=== PATIENT | male | born 1960 | race Caucasian/White ===

== ENCOUNTER 2025-08-04 09:34 | Inpatient (IN) | payer OTHER, BC ==
[2025-08-04] MEDS ORDERED: ONDANSETRON 4 MG/2 ML VIAL ONE ×2 (09:57→12:50)
[2025-08-04] MEDS ORDERED: FENTANYL CITR 100 MCG/2 ML ONE ×3 (09:58→14:45)
[2025-08-04 10:02] LABS: Absolute Lymphocytes (CBC) 0.5 K/uL (0.7-4.9); Hematocrit 45.9 % (39.6-49.0); Hemoglobin 15.9 g/dL (13.6-17.9); MCH 33.4 pg (27.0-35.0); MCHC 34.7 g/dL (32.0-36.0); MCV 96.2 fL (80-100); MPV 8.7 fL (7.6-11.3); Nucleated RBC Absolute Count 0.0 (0-0); Nucleated Red Blood Cells % 0.0 % (0-0); RBC Red Blood Cell Count 4.77 M/uL (4.33-5.43); White Blood Count 9.60 thou/uL (4.3-10.9)
[2025-08-04 10:21] LABS: ALT/SGPT 16 U/L (16-61); Albumin 3.6 g/dL (3.4-5.0); Albumin/Globulin Ratio 0.8 (1.1-1.8); Alkaline Phosphatase 31 U/L (45-117); Anion Gap 14.3 mEq/L (5.0-15.0); BUN Blood Urea Nitrogen 30 mg/dL (7-18); Globulin 4.3 g/dL (2.3-3.5); Glucose Level 141 mg/dL (74-106); Lipase 23 U/L (13-75); Potassium 4.3 mEq/L (3.5-5.1)
[2025-08-04] MEDS ORDERED: NA CHLORIDE 0.9% 1,000 ML ONE ×2 (10:21→12:18)
[2025-08-04 10:24] LABS: AST/SGOT < 10 U/L (15-37)
--- NOTE | 2025-08-04 10:49 | RAD REPORT ---
EXAMINATION: CT ABDOMEN AND PELVIS WITHOUT CONTRAST CLINICAL INDICATION: ABD PAIN TECHNIQUE: CT abdomen and pelvis was performed, without IV contrast, as per department protocol. Axia l, sagittal and coronal reconstructions were obtained. One or more of the following dose reduction techniques were used: Automated exposure control, adjustment of the mA and kV according to the patien t size, and iterative reconstruction. Unless otherwise specified, incidental findings do not require dedicated imaging follow-up. COMPARISON: No prior exam. FINDINGS: The lack of intravenous contrast limits the sensitivity of this exam for evaluation of solid visceral organs, vascular structures, and retroperitoneum. LOWER CHEST: Mild linear atelectasis in both lung bases. LIVER:Normal in size and contour. No focal lesion. Grossly unremarkable gallbladder. SPLEEN: Normal size. No focal lesion. PANCREAS: No mass, ductal dilation, or emmy-pancreatic fluid. ADRENALS: Normal; no mass. KIDNEYS AND URETERS: Small calyceal calculi present lateral kidneys. 29 mm posteriorly located right renal cyst. URINARY BLADDER: Normal contour. GASTROINTESTINAL TRACT: No evidence of bowel obstruction, significant free fluid, free air or abscess . A few mildly prominent small bowel loops in the central abdomen likely ileus. APPENDIX: Enlarged and inflamed appendix measuring up to 15 mm containing an appendicolith. LYMPH NODES: No lymphadenopathy. MUSCULOSKELETAL: No acute or suspicious osseous abnormality. ADDITIONAL FINDINGS: Aortoiliac atherosclerosis. IMPRESSION: Acute appendicitis.
[2025-08-04] MEDS ORDERED: NA CHLORIDE 0.9% 100 ML ONE (11:04)
[2025-08-04] MEDS ORDERED: PIPERACIL/TAZO 3.375 GM VIAL IV ONE (11:04)
--- NOTE | 2025-08-04 11:14 | ER ---
Nurse's Notes [facility] Name: Vazquez Melgar Age: 64 yrs Sex: Male : 1960 Arrival Date: 08/04/2025 Time: 09:34 Bed 7 Private MD: Diagnosis: Acute appendicitis with localized peritonitis;ADRIAN;elecated lactate Presentation: 08/04 09:43 Chief complaint: Patient states: abd pain since Friday. Coronavirus screen: At this iw time, the client does not indicate any symptoms associated with coronavirus-19. Ebola Screen: No symptoms or risks identified at this time. Risk Assessment: Do you want to hurt yourself or someone else? Patient reports no desire to harm self or others. Onset of symptoms was August 01, 2025. 09:43 Method Of Arrival: Wheelchair iw 09:43 Acuity: MELISSA 3 iw 12:28 Initial Sepsis Screen: Does the patient meet any 2 criteria? No. Patient's initial 5 sepsis screen is negative. Does the patient have a suspected source of infection? No. Patient's initial sepsis screen is negative. Historical: - Allergies: 09:43 No Known Allergies; iw - PMHx: 09:43 Hypercholesterolemia; Hypertensive disorder; iw - PSHx: 09:43 hernia; iw - Immunization history:: Adult Immunizations not up to date. - Infectious Disease History:: Denies. - Social history:: Smoking status: Patient denies any tobacco usage or history of. Screenin:50 [facility] ED Fall Risk Assessment (Adult) History of falling in the last 3 months, 5 including since admission No falls in past 3 months (0 pts) Confusion or Disorientation No (0 pts) Intoxicated or Sedated No (0 pts) Impaired Gait No (0 pts) Mobility Assist Device Used No (0 pt) Altered Elimination No (0 pt) Score/Fall Risk Level 0 - 2 = Low Risk Oriented to surroundings, Maintained a safe environment, Educated pt \T\ family on fall prevention, incl call for assistance when getting out of bed, Assessed \T\ reinforced patient's understanding of fall precautions, Provided non-skid footwear, Hourly rounding (assess needs \T\ fall precautionary measures) done, Used ambulatory aids as needed (educated on \T\ assisted with). Abuse screen: Denies threats or abuse. Denies injuries from another. Nutritional screening: No deficits noted. Tuberculosis screening: No symptoms or risk factors identified. Assessment: 09:55 General: Appears uncomfortable, Behavior is cooperative. Pain: Complains of pain in jp5 abdomen Pain currently is 10 out of 10 on a pain scale. Quality of pain is described as. GI: Bowel sounds present X 4 quads. Abd is soft X 4 quads Abdomen is tender to palpation. 11:00 Reassessment: Patient appears in no apparent distress at this time. Patient and/or jp5 family updated on plan of care and expected duration. Pain level reassessed. Patient is alert, oriented x 3, equal unlabored respirations, skin warm/dry/pink. Patient states symptoms have improved. Vital Signs: 09:45 BP 129 / 84; Pulse 101; Resp 19; Pulse Ox 97% on R/A; Weight 72.57 kg; Height 5 ft. 6 iw in. ; Pain 10/10; 10:00 BP 112 / 65; Pulse 100; Resp 18; Pulse Ox 96% on R/A; jp5 10:30 Pain 5/10; jp5 11:00 BP 102 / 58; Pulse 91; Resp 18; Pulse Ox 96% on R/A; jp5 12:00 BP 110 / 60; Pulse 90; Resp 18; Temp 98; Pulse Ox 96% on R/A; Pain 0/10; jp5 09:45 Body Mass Index 25.82 (72.57 kg, 167.64 cm) iw 09:45 Pain Scale: Adult iw 10:30 Pain Scale: Adult jp5 12:00 Pain Scale: Adult 5 ED Course: 09:37 Patient arrived in ED. al6 09:37 Talon Luther DO is Attending Physician. ms3 09:39 Lyle Kwon, ИВАН is PHCP. cr8 09:43 Triage completed. iw 09:44 Kamini Smith, RN is Primary Nurse. jp5 09:46 Arm band placed on. iw 09:50 Patient has correct armband on for positive identification. Bed in low position. Call cyrus light in reach. Side rails up X 1. Provided Education on: call light use. Pulse ox on. NIBP on. Warm blanket given. 09:50 No provider procedures requiring assistance completed. Initial lab(s) drawn, by cyrus wilson sent to lab. Inserted saline lock: 20 gauge in right antecubital area, using aseptic technique. Blood collected. Flushed with 10 mL NS. 09:55 CBC with Diff Sent. jp5 09:55 CMP Sent. jp5 09:55 Lipase Sent. jp5 09:55 Lactate w/ 2H reflex if indic. Sent. jp5 10:39 CT Abd/Pelvis - Without Contrast In Process Unspecified. EDMS 11:12 Lionel Ornelas MD is Hospitalizing Provider. cr8 12:23 Ghost Lactate-NO COLLECT Timer Sent. jp5 12:28 Patient admitted, IV remains in place. jp5 Administered Medications: 10:02 Drug: fentaNYL (PF) IVP 50 mcg IVP once Route: IVP; Site: right antecubital; jp5 10:30 Follow up: Pain 5/10 Adult; Response: No adverse reaction; Pain is decreased jp5 10:02 Drug: Ondansetron IVP 4 mg IVP once; over 2 minutes Route: IVP; Site: right antecubital;jp5 10:30 Follow up: Response: No adverse reaction jp5 10:38 Drug: NS 0.9% IV 1000 ml IV at 1000 ml once; to be given as a bolus over 60 minutes aa5 Route: IV; Rate: 1000 ml; Site: right antecubital; 11:38 Follow up: Response: No adverse reaction; IV Status: Completed infusion; IV Intake: jp5 1000ml 11:09 Drug: Piperacillin-Tazobactam IVPB 3.375 grams IVPB once over 60 mins; (mix in NS 100 jp5 mL) Route: IVPB; Infused Over: 60 mins; Site: right antecubital; 12:09 Follow up: Response: No adverse reaction; IV Status: Completed infusion; IV Intake: jp5 100ml 12:23 Drug: NS 0.9% IV 1000 ml IV at 1000 ml once; to be given as a bolus over 60 minutes jp5 Route: IV; Rate: 1000 ml; Site: right antecubital; Medication: 09:50 VIS not applicable for this client. jp5 Intake: 11:38 IV: 1000ml; Total: 1000ml. jp5 12:09 IV: 100ml; Total: 1100ml. jp5 Outcome: 11:14 Decision to Hospitalize by Provider. cr8 12:24 Admitted to OR Other Nurse from day surgery here to transport pt to OR. jp5 12:24 Condition: stable 12:24 Instructed on the need for admit, 12:28 Patient left the ED. jp5 Signatures: Dispatcher [employer] Puja Simeon, RN RN iw Atiya Aceves RN RN aa5 Talon Luther DO DO ms3 Kamini Smith RN RN jp5 Ingrid Gentile al6 Lyle Kwon, POULTRY CUTTER POULTRY CUTTER cr8
--- NOTE | 2025-08-04 11:14 | EDPHYS ---
Physician Documentation [facility] Name: Vazquez Melgar Age: 64 yrs Sex: Male : 1960 Arrival Date: 08/04/2025 Time: 09:34 Bed 7 Private MD: ED Physician Talon Luther HPI: 08/04 09:46 This 64 yrs old Male presents to ER via Wheelchair with complaints of Abdominal Pain. cr8 09:46 Patient is a 64-year-old with history of hypertension hyperlipidemia hernia repair cr8 comes in the emergency room complaining of generalized abdominal pain since Friday. States has gotten worse. Any little movement makes it unbearable. Reports he thought it was constipation so took some laxatives but states it did not help. Reports decreased p.o. intake since Friday. Pain is generalized but states worse in the right lower quadrant. Denies fever chest pain. No dysuria or hematuria.. Historical: - Allergies: 09:43 No Known Allergies; iw - PMHx: 09:43 Hypercholesterolemia; Hypertensive disorder; iw - PSHx: 09:43 hernia; iw - Immunization history:: Adult Immunizations not up to date. - Infectious Disease History:: Denies. - Social history:: Smoking status: Patient denies any tobacco usage or history of. ROS: 09:46 Constitutional: as per HPI cr8 Exam: 09:46 Cardiovascular: Regular rate and rhythm with a normal S1 and S2. No gallops, murmurs, cr8 or rubs. Respiratory: Lungs have equal breath sounds bilaterally, clear to auscultation. No rales, rhonchi or wheezes noted. No increased work of breathing. 09:46 Constitutional: This is a well developed, well nourished patient who is awake, alert. Appears to be in significant pain Skin: Warm, dry with normal turgor. Normal color with no rashes, no lesions, and no evidence of cellulitis. Neuro: Awake and alert, GCS 15, oriented to person, place, time, and situation. Cranial nerves II-XII grossly intact. Motor strength 5/5 in all extremities. Sensory grossly intact. 09:46 Abdomen/GI: Palpation: moderate abdominal tenderness, in all quadrants, But more pronounced in the right lower quadrant, mass, rebound tenderness, is elicited in all quadrants, Vital Signs: 09:45 BP 129 / 84; Pulse 101; Resp 19; Pulse Ox 97% on R/A; Weight 72.57 kg; Height 5 ft. 6 iw in. ; Pain 10/10; 10:00 BP 112 / 65; Pulse 100; Resp 18; Pulse Ox 96% on R/A; jp5 10:30 Pain 5/10; jp5 11:00 BP 102 / 58; Pulse 91; Resp 18; Pulse Ox 96% on R/A; jp5 12:00 BP 110 / 60; Pulse 90; Resp 18; Temp 98; Pulse Ox 96% on R/A; Pain 0/10; jp5 09:45 Body Mass Index 25.82 (72.57 kg, 167.64 cm) iw 09:45 Pain Scale: Adult iw 10:30 Pain Scale: Adult jp5 12:00 Pain Scale: Adult jp5 MDM: 09:39 Medical Screening Exam initiated cr8 11:08 Data reviewed: vital signs, nurses notes, lab test result(s), radiologic studies. cr8 Management of patient was discussed with the following: Lace Inspector: dr. Rosado. Counseling: I had a detailed discussion with the patient and/or guardian regarding the historical points, exam findings, and any diagnostic results supporting the discharge/admit diagnosis, lab results, radiology results, the need for further work-up and treatment in the hospital. ED course: Patient came in for abdominal pain. Given work up, low suspicion for acute hepatobiliary disease (including acute cholecystitis or cholangitis), acute infectious processes (pneumonia, hepatitis, pyelonephritis), vascular catastrophe, bowel obstruction, or viscus perforation. We did a CT scan which showed acute appendicitis without perforation or abscess in the right lower quadrant. Patient's creatinine was also elevated at 1.91 so suspect acute kidney injury from recent decreased intake. Lactic acid was 2.9. He was given a liter of fluid for this. No indication of septic shock on examination. Patient's blood pressure stable. After pain medicine he was not tachycardic. Was given Zosyn for the appendicitis. Surgeon was consulted and he will take him to the OR. Patient was given 50 mics of female IV pain is improved.. 08/04 09:45 Order name: CBC with Diff; Complete Time: 11:43 cr8 08/04 09:45 Order name: CMP; Complete Time: 10:25 cr8 08/04 09:45 Order name: Lipase; Complete Time: 10:25 cr8 08/04 09:45 Order name: Lactate w/ 2H reflex if indic.; Complete Time: 10:35 cr8 08/04 10:31 Order name: Ghost Lactate-NO COLLECT Timer; Complete Time: 12:54 EDMS 08/04 11:40 Order name: Manual Differential; Complete Time: 11:43 EDMS 08/04 10:26 Order name: CT Abd/Pelvis - Without Contrast; Complete Time: 10:55 cr8 08/04 09:45 Order name: IV Saline Lock; Complete Time: 09:55 cr8 Administered Medications: 10:02 Drug: fentaNYL (PF) IVP 50 mcg IVP once Route: IVP; Site: right antecubital; jp5 10:30 Follow up: Pain 03/05 Adult; Response: No adverse reaction; Pain is decreased jp5 10:02 Drug: Ondansetron IVP 4 mg IVP once; over 2 minutes Route: IVP; Site: right antecubital;jp5 10:30 Follow up: Response: No adverse reaction jp5 10:38 Drug: NS 0.9% IV 1000 ml IV at 1000 ml once; to be given as a bolus over 60 minutes aa5 Route: IV; Rate: 1000 ml; Site: right antecubital; 11:38 Follow up: Response: No adverse reaction; IV Status: Completed infusion; IV Intake: jp5 1000ml 11:09 Drug: Piperacillin-Tazobactam IVPB 3.375 grams IVPB once over 60 mins; (mix in NS 100 jp5 mL) Route: IVPB; Infused Over: 60 mins; Site: right antecubital; 12:09 Follow up: Response: No adverse reaction; IV Status: Completed infusion; IV Intake: jp5 100ml 12:23 Drug: NS 0.9% IV 1000 ml IV at 1000 ml once; to be given as a bolus over 60 minutes jp5 Route: IV; Rate: 1000 ml; Site: right antecubital; Disposition: 10:15 I was immediately available on-site in the Emergency Department for consultation in the ms3 care of the patient. Disposition Summary: 08/04/25 11:14 Hospitalization Ordered Notes: Hospitalization Status: Observation cr8 Provider: Lionel Ornelas Location: Operating Room cr8 Condition: Stable cr8 Problem: an ongoing problem cr8 Symptoms: are unchanged cr8 Bed/Room Type: Standard cr8 Room Assignment: cr8 Diagnosis - Acute appendicitis with localized peritonitis cr8 - ADRIAN cr8 - elecated lactate cr8 Forms: - Medication Reconciliation Form cr8 - SBAR form cr8 - Leadership Thank You Letter cr8 Signatures: Dispatcher [employer] EDPuja Arvizu RN RN iw Atiya Aceves RN RN aa5 Talon Luther DO DO ms3 Kamini Smith RN RN jp5 Lyle Kwon NP SHINGLE INSPECTOR cr8 Corrections: (The following items were deleted from the chart) 11:41 10:07 CBC Smear Scan ordered. EDMS EDMS
[2025-08-04 11:39] LABS: Blood Morphology Comment NOT SEEN (NOT SEEN); Differential Total Cells Count 100; Segmented Neutrophils 80 % (40-80)
[2025-08-04] MEDS ORDERED: KETOROLAC 30 MG/ML INJ ONE (12:50)
[2025-08-04] MEDS ORDERED: ROCURONIUM 50 MG/5 ML VIAL IV ONE (12:50)
[2025-08-04] MEDS ORDERED: MIDAZOLAM HCL 2 MG/2 ML INJ ONE (12:50)
[2025-08-04] MEDS ORDERED: LIDOCAINE 1% MPF 5 ML VIAL ONE (12:50)
[2025-08-04] MEDS ORDERED: EPHEDRINE SULF 50 MG/ML VIAL ONE (14:24)
[2025-08-04] MEDS: LIDOCAINE HCL/EPINEPHRINE 20 ML MDV ONE (14:28)
[2025-08-04] MEDS ORDERED: NEOSTIGMINE 1 MG/ML -10 ML VIAL ONE (14:53)
[2025-08-04] MEDS ORDERED: GLYCOPYRROLATE 0.2 MG/ML SYR ONE (14:53)
--- NOTE | 2025-08-04 14:56 | P.OP ---
Preoperative diagnosis: Acute Appendicitis Postoperative diagnosis: Acute Perforated Appendicitis Primary procedure: Laparoscopic Appendectomy Anesthesia: GETA + Local Estimated blood loss: <5cc Specimen: Vermiform Appendix Findings: Perforated appenditic with abscess Complications: None Transferred to: Recovery Room Condition: Good
[2025-08-04] MEDS: D5 0.45 NS 1,000 ML IV SCH (15:14)
[2025-08-04] MEDS ORDERED: MORPHINE 2 MG/ML SYR IV PRN (15:39)
[2025-08-04] MEDS ORDERED: ONDANSETRON 4 MG/2 ML VIAL IV PRN (15:39)
[2025-08-04] MEDS ORDERED: HYDRALAZINE HCL 20 MG/ML VIAL IV PRN (15:41)
--- NOTE | 2025-08-04 15:47 | P.HP ---
Certification for Inpatient With expected LOS: >2 Midnights Patient will require the following post-hospital care: None Practitioner: I am a practitioner with admitting privileges, knowledge of patient current condition, hospital course, and medical plan of care. Services: Services provided to patient in accordance with Admission requirements found in Title 42 Section 412.3 of the Code of Federal Regulations Patient History Date of Service: 08/04/25 Reason for admission: Abdominal pain History of Present Illness: Patient is in PACU, under sedation, he is not able to provide any history to me at this time. 64-year-old patient presented with abdominal pain, he was found to have acute appendicitis, he was taken to the operating room, he had laparoscopic appendectomy, he was found to have perforated appendicitis so we were asked to admit him. He is still under sedation, he is not able to provide any history at this time. Most of the information that I got from the ER notes and the EMR. Review of systems: All other 10 point review of systems are not able to obtain. Allergies and medications: Reviewed, as per [employer] EMR. Past medical history: Hypertension, hyperlipidemia Past surgical history: Hernia repair Social history: Not able to obtain at this time Family history: Not able to obtain at this time Physical examination: Vital signs: Reviewed, as per EMR. General appearance: comfortable, lethargic. HEENT: Exam deferred at this time. CVS: Normal S1-S2 Lungs: Clear to auscultation bilaterally Abdomen: Soft, bowel sounds present, incisions dry and intact Extremities: No lower extremity edema FILTER WASHER AND PRESSER: Exam deferred at this time. Musculoskeletal: No obvious joint swelling or tenderness Allergies No Known Allergies Allergy (Unverified 08/04/25 12:44) Physical Examination - Vital Signs Temperature: 99.1 F Blood Pressure: 128/59 Pulse: 104 Respirations: 24 - Studies Laboratory Data (last 24 hrs) 08/04/25 08/04/25 09:54 09:54 WBC 9.60 Hgb 15.9 Hct 45.9 Plt Count 155 Sodium 134 L Potassium 4.3 BUN 30 H Creatinine 1.91 H Glucose 141 H Total Bilirubin 2.7 H AST < 10 L ALT 16 Alkaline Phosphatase 31 L Lipase 23 Assessment and Plan - Plan Assessment and plan: 1. Perforated appendicitis: Status post laparoscopic appendectomy, continue IV antibiotics, diet and postop cares as per surgical team. I will put him on IV Zofran and IV morphine for symptomatic treatment. 2. Hypertension, hyperlipidemia: I will start him on as needed IV hydralazine for now, resume home medications when he is able to take oral medications. 3. Acute kidney injury versus chronic kidney disease: No recent creatinine available in the computer, last lab was few years back, will treat as mild ADRIAN for now, start him on IV fluids, monitor labs closely. DVT prophylaxis: Heparin CODE STATUS: Full code for the time being, this needs to be addressed again once he is more alert. I did discuss the above plan with the PACU nursing staff, will admit him to the hospital as inpatient for now. - Advance Directives Does patient have a Living Will: No Does patient have a Durable POA for Healthcare: No
--- NOTE | 2025-08-04 17:49 | CON ---
Date of Consultation: 08/04/2025 Brief History Of Present Illness: The patient is a 64-year-old male who presents with abdominal pain , which was in the periumbilical, now right lower quadrant beginning on Friday. This was approximate ly 4 days ago. It got significantly worse. He thought it was related to kidney stones as he has had a history of kidney stones before in the past. However, this pain was not like that type of pain. He continued to hydrate well. He continued to urinate well without any issues and the pain got signi ficantly worse, and as such, he came to the emergency room with the above-stated complaints. The hema n got more severe and was located in the right lower quadrant. He has had a right lower quadrant ing uinal hernia repair in the past before. Past Medical History: Hypercholesterolemia, hypertension. Past Surgical History: Right inguinal hernia repair. Allergies: NO KNOWN DRUG ALLERGIES. Medications: He takes hypertensive and cholesterol medications. Otherwise, he has no other medicati ons. Social History: He denies smoking, alcohol, or recreational drug use. Review of Systems: Ten-point review of systems other than HPI, denies. Physical Examination: General: At the time of my examination, he is awake, alert, and oriented. Psychiatric: Appropriate and conversive. HEENT: He is normocephalic. Sclerae anicteric. Mucous membranes are moist. Oropharynx clear. Neck: Supple without JVD. Chest: Normal to expansion and excursion. Cardiovascular: Regular rate and rhythm. Pulmonary: Clear to auscultation bilaterally. Abdomen: Soft with positive right lower quadrant tenderness to palpation. McBurney's point positive . Focal peritonitis. Positive rebound. Positive guarding. Extremities: No clubbing, cyanosis, or edema. Skin: Warm and dry. Laboratory Data: Reveals white blood cell count 9.6, hemoglobin is 15.9, hematocrit of 45.9, platele t count is 155, neutrophils are 90%. Sodium 134, potassium 4.3, chloride 100, carbon dioxide 24, BUN 30, creatinine 1.9, glucose is 141. Lactic acid was 2.9, total bilirubin 2.7, AST less than 10, ALT 16, alkaline phosphatase 31, lipase is 23. He had a CT scan of the abdomen and pelvis which was off icially read as acute appendicitis. Assessment And Plan: This is a 64-year-old male who comes in with signs and symptoms of acute append icitis. 1. IV fluid hydration. 2. Antibiotic coverage. 3. I have explained the risks, benefits, and alternatives of laparoscopic, possible open appendectomy including, but not limited to, bleeding, infection, damage to surrounding tissue, need for further o perative procedures, blood clots, heart attacks, strokes, other unforeseen complications in the perio perative period. The patient displayed understanding of the above-stated plan and agreed to proceed as indicated. BINDU/ROSEMARIE Voice ID: [id number] Report ID: [id number]
[2025-08-04] MEDS: NA CHLORIDE 0.9% 1,000 ML IV SCH (18:04)
[2025-08-04] MEDS: PIPER TAZO 3.375 GM in NA CHLORIDE 0.9% 100 ML IV SCH (18:04)
[2025-08-04] MEDS: HEPARIN 5000 UNIT/ML 1 ML VIAL SQ SCH (18:04)
[2025-08-04] MEDS: HYDROMORPHONE HCL 1 MG/ML INJ IV PRN (18:05)
[2025-08-04 18:27] VITALS: BMI 25.8
[2025-08-04] MEDS: INFLUENZA VACCINE (for 6+ mo) 0.5 ML DOSE IMVAC ONE (19:00)
--- NOTE | 2025-08-04 23:54 | OP ---
Date of Procedure: 08/04/2025 Surgeon: Lionel Ornelas MD, Preoperative Diagnosis: Acute appendicitis. Postoperative Diagnosis: Acute perforated appendicitis. Procedure Performed: Laparoscopic appendectomy. Anesthesia: General endotracheal plus local. Estimated Blood Loss: Less than 5 cc. Specimen: Vermiform appendix. Findings: Perforated appendicitis with abscesses. Complications: None. Disposition: The patient was transferred to recovery room in good condition. Procedure In Detail: After informed consent was obtained, the patient was brought to the operating r oom, prepped and draped in the usual sterile fashion. After adequate anesthesia was achieved, I anes thetized an area in the infraumbilical position down to subcutaneous tissues. A 5 mm 0-degree optica l trocar was introduced into the abdomen without incident or complication. Insufflation was obtained to 15 mmHg at this time. There was no injury to vital structures upon entry into the abdomen. Two additional trocars were placed, 1 in the epigastrium, 1 in the right lower quadrant, both of these we re 5 mm trocars, placed under direct vision without incident or complication. The umbilical trocar w as then upsized to 12 mm under direct vision without complication. I then positioned the patient hea d down right side up position. Ratcheted grasper was used to grasp the patient's appendix. There wa s obvious perforation in this area with necrosis to the appendix. Significant abscesses in multiple parts of the right lower quadrant, all the way extending up with feculent material, extending all the way up to the perihepatic space. I created a mesenteric window using a [place] retractor. Endo GI A 45 purple load fired across the base of the appendix at the confluence of the cecum with good appos ition of the tissues. At this point, I used the LigaSure to take the mesoappendix down. The appendi x was then placed in EndoCatch bag, removed through the umbilical trocar site, sent off for pathologi c examination. The area was copiously irrigated with approximately 3 L of warm saline. m ultiple times until all effluent was completely clear. We placed the patient back in neutral positio n. I closed the 12 mm trocar site using the Christian-Jordy suture passer and 0 Vicryl in interrupte d fashion with good approximation of tissue. The abdomen was desufflated under direct vision without incident or complication. The remaining trocars were removed. All skin incisions were then copious ly irrigated and closed with a 4-0 Monocryl in a running fashion. Dermabond was placed over top. Th e patient tolerated the procedure without incident or complication, transferred to PACU in good condi tion. All counts were correct at the end of the case. BINDU/ROSEMARIE Voice ID: [id number] Report ID: [id number]
[2025-08-05] MEDS: HYDROCODONE/APAP 7.5/325 MG TAB PO PRN (00:17)
[2025-08-05 05:03] LABS: Absolute Lymphocytes (CBC) 0.6 K/uL (0.7-4.9); Hematocrit 33.7 % (39.6-49.0); Hemoglobin 12.1 g/dL (13.6-17.9); MCH 34.3 pg (27.0-35.0); MCHC 36.0 g/dL (32.0-36.0); MCV 95.2 fL (80-100); MPV 8.4 fL (7.6-11.3); Nucleated RBC Absolute Count 0.0 (0-0); Nucleated Red Blood Cells % 0.1 % (0-0); RBC Red Blood Cell Count 3.54 M/uL (4.33-5.43); White Blood Count 5.10 thou/uL (4.3-10.9)
[2025-08-05 05:19] LABS: Anion Gap 9.1 mEq/L (5.0-15.0); BUN Blood Urea Nitrogen 26.0 mg/dL (7-18); Glucose Level 132.0 mg/dL (74-106); Magnesium 2.4 mg/dL (1.6-2.4); Potassium 4.1 mEq/L (3.5-5.1)
--- NOTE | 2025-08-05 06:52 | P.PN ---
Date of Service: 08/05/25 Subjective: doing better nothing worse occasional pains in RLQ Physical Exam: GEN: Alert, oriented, NAD CV: Regular rate and rhythm, no edema Pulm:Nonlabored respirations on room air, clear bilaterally ABD: soft, minimal soreness, dressing in place Neuro: Normal speech, normal affect Problem List: Acute perforated appendicitis s/p lap appy (08/04) RLQ abdominal abscess ADRIAN, resolved Hypertension Hyperlipidemia CT abd/pelvis on admission consistent with Acute appendicitis s/p lap appy with Dr. Ornelas (08/04) Found to have perforated appendix with necrosis during surgery. +multiple RLQ abscesses. Advance to soft diet per surgery Local wound care per surgery Continue IV Zosyn (08/04-) Augmentin to complete 2 weeks total on discahrge No leukocytosis, lactate resolved. pain control, IVF Encourage incentive spirometry, ambulation. VTE: heparin sq Code: Full Dispo: Home, ~1-2 day advance diet Time Spent Managing Pts Care (In Minutes): 55
[2025-08-05] MEDS: NA CHLORIDE 0.9% 1,000 ML IV SCH (17:28)
[2025-08-06 06:33] LABS: Absolute Lymphocytes (CBC) 0.7 K/uL (0.7-4.9); Hematocrit 32.7 % (39.6-49.0); Hemoglobin 11.7 g/dL (13.6-17.9); MCH 33.9 pg (27.0-35.0); MCHC 35.9 g/dL (32.0-36.0); MCV 94.7 fL (80-100); MPV 8.6 fL (7.6-11.3); Nucleated RBC Absolute Count 0.0 (0-0); Nucleated Red Blood Cells % 0.1 % (0-0); RBC Red Blood Cell Count 3.45 M/uL (4.33-5.43); White Blood Count 6.90 thou/uL (4.3-10.9)
[2025-08-06 06:48] LABS: Anion Gap 7.9 mEq/L (5.0-15.0); BUN Blood Urea Nitrogen 16.0 mg/dL (7-18); Glucose Level 106.0 mg/dL (74-106); Magnesium 2.1 mg/dL (1.6-2.4); Potassium 3.9 mEq/L (3.5-5.1)
[2025-08-06] MEDS ORDERED: FLU (Fluarix) 25-26 (6MOS UP)/PF 45 MCG/0.5 ML Syringe IM ONE (07:45)
[2025-08-06 08:35] VITALS: BP 139/72; TEMP 98.4
[2025-08-06 08:59] VITALS: O2SAT 95
[2025-08-06] MEDS ORDERED: MORPHINE 4 MG/ML SYR IV PRN (09:12)
[2025-08-06] MEDS ORDERED: TAMSULOSIN 0.4 MG SR CAP PO SCH (10:00)
--- NOTE | 2025-08-06 11:31 | P.DS ---
Admission Date: 08/04/25 Discharge Date: 08/06/25 Disposition: ROUTINE DISCHARGE Discharge Condition: GOOD Reason for Admission: Abdominal pain Consultations: General surgery - Dr. Ornelas Brief History of Present Illness: 64-year-old patient presented with abdominal pain, he was found to have acute appendicitis, he was taken to the operating room, he had laparoscopic appendectomy, he was found to have perforated appendicitis so we were asked to admit him. He is still under sedation, he is not able to provide any history at this time. Most of the information that I got from the ER notes and the EMR. Hospital Course: Problem List: Acute perforated appendicitis s/p lap appy (08/04) RLQ abdominal abscess ADRIAN, resolved Hypertension Hyperlipidemia Physician discharge instructions: Patient presented with worsening abdominal pain secondary to acute perforated appendicits. CT abdomen/pelvis on admission was consistent with acute appendicitis. Patient was evaluated by Dr. Ornelas, general surgeon and underwent lap appy on 08/04. Dr. Ornelas reported perforated appendix with necrosis during surgery and also found RLQ abscesses. Patient continued to improve daily post-operatively. His diet was slowly advanced as pain and nausea improved. Patient received ~2 days of IV zosyn while hospitalized and is to complete 12 more days of oral Augmentin on discharge. Follow up with Dr. Ornelas in his office in 1 week for further management. Recommend soft diet for next 3-5 days. Can slowly ease back into regular diet over the next week. Patient was feeling better, abdominal pain improved, appetite improving, and was deemed stable for discharge. No heavy lifting > 10lbs for 4-6 weeks or otherwise instructed by Dr. Ornelas Keep area clean. Do not submerge wound underwater. Okay to shower with running water. continue to use incentive spirometer several times a day to continue deep breathing exercises. Medications: Augmentin x12 days [place] 15 pills as needed for pain Follow up: PCP 3-[address] Ornelas in 1 week in his office Please call to schedule / confirm appointments Physical Exam: GEN: Alert, oriented, NAD CV: Regular rate and rhythm, no edema Pulm:Nonlabored respirations on room air, clear bilaterally ABD: soft, nontender, dressing in place Neuro: Normal speech, normal affect Vital Signs/Physical Exam: Temp Pulse Resp BP Pulse Ox 98.4 F 87 20 139/72 92 08/06/25 08:00 08/06/25 08:00 08/06/25 08:00 08/06/25 08:00 08/06/25 08:00 Laboratory Data at Discharge: WBC 6.90 thou/uL (4.3-10.9) 08/06/25 06:02 Hgb 11.7 g/dL (13.6-17.9) L 08/06/25 06:02 Hct 32.7 % (39.6-49.0) L 08/06/25 06:02 Plt Count 132 thou/uL (152-406) L 08/06/25 06:02 Sodium 140 mEq/L (136-145) 08/06/25 06:02 Potassium 3.9 mEq/L (3.5-5.1) 08/06/25 06:02 BUN 16 mg/dL (7-18) 08/06/25 06:02 Creatinine 0.92 mg/dL (0.70-1.30) 08/06/25 06:02 Glucose 106 mg/dL (74-106) 08/06/25 06:02 Phosphorus 2.3 mg/dL (2.5-4.9) L 08/06/25 06:02 Magnesium 2.1 mg/dL (1.6-2.4) 08/06/25 06:02 Total Bilirubin 2.7 mg/dL (0.2-1.0) H 08/04/25 09:54 AST < 10 U/L (15-37) L 08/04/25 09:54 ALT 16 U/L (16-61) 08/04/25 09:54 Alkaline Phosphatase 31 U/L (45-117) L 08/04/25 09:54 Lipase 23 U/L (13-75) 08/04/25 09:54 Home Medications: Atorvastatin Calcium [Lipitor*] 20 mg PO BEDTIME 08/04/25 Fenofibrate,Micronized [Fenofibrate] 200 mg PO DAILY 08/04/25 Lisinopril [Zestril] 10 mg PO DAILY 08/04/25 Tamsulosin [Flomax*] 0.4 mg PO DAILY 08/04/25 Amox/Clavulanate [Augmentin 875-125 Tab] 1 each PO BID 12 Days #24 tab 08/06/25 Hydrocodone/Acetaminophen [Hydrocodon-Acetaminophen 5-325] 1 tab PO Q8H PRN #15 tab 08/06/25 New Medications: Amox/Clavulanate [Augmentin 875-125 Tab] 1 each PO BID 12 Days #24 tab Hydrocodone/Acetaminophen [Hydrocodon-Acetaminophen 5-325] 1 tab PO Q8H PRN #15 tab PRN Reason: Pain Scale 5-7 (Moderate) Physician Discharge Instructions: Physician discharge instructions: Patient presented with worsening abdominal pain secondary to acute perforated appendicits. CT abdomen/pelvis on admission was consistent with acute appendicitis. Patient was evaluated by Dr. Ornelas, general surgeon and underwent lap appy on 08/04. Dr. Ornelas reported perforated appendix with necrosis during surgery and also found RLQ abscesses. Patient continued to improve daily post-operatively. His diet was slowly advanced as pain and nausea improved. Patient received ~2 days of IV zosyn while hospitalized and is to complete 12 more days of oral Augmentin on discharge. Follow up with Dr. Ornelas in his office in 1 week for further management. Recommend soft diet for next 3-5 days. Can slowly ease back into regular diet over the next week. Patient was feeling better, abdominal pain improved, appetite improving, and was deemed stable for discharge. No heavy lifting > 10lbs for 4-6 weeks or otherwise instructed by Dr. Ornelas Keep area clean. Do not submerge wound underwater. Okay to shower with running water. continue to use incentive spirometer several times a day to continue deep breathing exercises. Medications: Augmentin x12 days [place] 15 pills as needed for pain Follow up: PCP 3-[address] Ornelas in 1 week in his office Please call to schedule / confirm appointments Diet: Regular Activity: No lifting more than 10 lbs Followup: Cade Roe MD [Primary Care Provider] - 1-2 Weeks Lionel Ornelas MD [ACTIVE - CAN ADMIT] - 1-2 Weeks Time spent managing pt's care (in minutes): 45
== END 2025-08-06 11:30 | disposition home or self-care (01) | DRG 398 ==
LOC: ER 09:34 → 2ND 15:39
PROVIDERS: ADMIT Hospitalist; ATTEND Hospitalist
PROC: 0DTJ4ZZ Resection of Appendix, Percutaneous Endoscopic Approach (ICD-10-PCS; principal; 2025-08-04 16:45)
DX: K35.33 Acute appendicitis with perforation, localized peritonitis, and gangrene, with abscess (principal); N17.9 Acute kidney failure, unspecified; I10 Essential (primary) hypertension; E78.00 Pure hypercholesterolemia, unspecified
CPT/HCPCS: 36415; 74176; 80048; 80053; 82947; 83605; 83690; 83735; 84100; 85025; 88304; 94010; 96361; 96365; 96375; 99285; J1171; J1644; J1885; J2003; J2250; J2405; J2543; J2704; J2710; J3010; J7030